=== PATIENT | male | born 1960 | race Caucasian/White ===

== ENCOUNTER 2019-03-01 10:56 | Outpatient (CLI) | payer OTHER ==
--- NOTE | 2019-03-01 15:11 | RAD ---
PA AND LATERAL VIEWS CHEST: Date: 03/01/19 HISTORY: Disability exam. FINDINGS: The heart size is normal. The lungs are expanded without lobar consolidation, pneumothoraces, or pleu ral effusions. There are degenerative changes in the spine. IMPRESSION: No acute process. POS: [facility]
--- NOTE | 2019-03-01 15:11 | RAD ---
RIGHT KNEE 2 VIEWS: HISTORY: Disability exam. Right knee pain. FINDINGS/IMPRESSION: There are postop changes. No fracture, subluxation, or bony destruction is seen. There are mild deg enerative changes. POS: [facility]
== END 2019-03-01 10:57 | disposition home or self-care (01) ==
LOC: BICRAD 10:56
PROVIDERS: ATTEND Internal Medicine
DX: Z02.71 Encounter for disability determination (principal); M17.11 Unilateral primary osteoarthritis, right knee; Z98.890 Other specified postprocedural states
CPT/HCPCS: 71046

== ENCOUNTER 2020-09-11 08:01 | Outpatient (CLI) | payer MEDICARE ==
[2020-09-11 08:36] LABS: Estimated GFR-MDRD - POC Greater than 90
== END 2020-09-11 08:02 | disposition home or self-care (01) ==
LOC: BICCT 08:01 → CT 08:02
PROVIDERS: ATTEND Internal Medicine Gastroenterology
DX: K63.9 Disease of intestine, unspecified (principal); K76.9 Liver disease, unspecified; K80.20 Calculus of gallbladder without cholecystitis without obstruction
CPT/HCPCS: 71260; 74177; 82565

== ENCOUNTER 2020-09-20 14:45 | Inpatient (IN) | payer MEDICARE ==
[2020-10-13 14:07] VITALS: BMI 33.5
[2020-10-18] MEDS ORDERED: cefOXitin Sodium/Dextrose 2 GM/50 ML BAG ONE (11:39)
[2020-10-18] MEDS ORDERED: Insulin Regular 300 UNITS/3 ML VIAL ONE (12:16)
[2020-10-18] MEDS ORDERED: Fentanyl 100 MCG/2 ML VIAL ONE ×3 (12:23→13:20)
[2020-10-18] MEDS ORDERED: Midazolam HCl 2 mg/2 ml Vial ONE ×2 (12:23→12:26)
[2020-10-18] MEDS ORDERED: Labetalol HCl 100 MG/20 ML VIAL ONE ×2 (12:26→13:32)
[2020-10-18] MEDS ORDERED: Ondansetron PF 4 MG/2 ML Vial ONE (13:32)
[2020-10-18] MEDS ORDERED: Lidocaine 1% PF 5 ML VIAL ONE (13:32)
[2020-10-18] MEDS ORDERED: Rocuronium Bromide 10 MG/ML (10ML VIAL) ONE (13:32)
[2020-10-18] MEDS ORDERED: Glycopyrrolate 0.2 MG/ML 5 ML SYRINGE ONE (13:32)
[2020-10-18] MEDS ORDERED: PROPOFOL 200 MG/20 ML VIAL ONE (13:32)
[2020-10-18] MEDS ORDERED: Bupivacaine HCl 0.5%/Epinephrine 1:200,000/PF 30 ml Vial ONE (13:32)
[2020-10-18] MEDS ORDERED: Metoclopramide HCl 10 MG/2 ML VIAL ONE (13:32)
[2020-10-18] MEDS ORDERED: SUGAMMADEX SODIUM 200 MG/2 ML VIAL ONE (14:56)
[2020-10-18] MEDS ORDERED: Ondansetron HCl/PF 4 MG/2 ML Vial IVP PRN (15:27)
[2020-10-18] MEDS ORDERED: Promethazine HCl 25 MG/ML VIAL IM PRN ×3 (15:27→17:43)
[2020-10-18] MEDS ORDERED: HYDROmorphone 2 MG/ML VIAL SLOW IVP PRN (15:27)
[2020-10-18] MEDS ORDERED: Promethazine HCl 25 MG/ML VIAL SLOW IVP PRN (15:27)
[2020-10-18] MEDS ORDERED: Labetalol HCl 100 MG/20 ML VIAL SLOW IVP SCH (15:45)
[2020-10-18] MEDS ORDERED: diphenhydrAMINE 50 MG/ML VIAL IM PRN (16:00)
[2020-10-18] MEDS ORDERED: Zolpidem Tartrate 5 MG TAB PO PRN (16:00)
[2020-10-18] MEDS ORDERED: Ondansetron PF 4 MG/2 ML Vial IVP PRN ×2 (16:00→17:43)
[2020-10-18] MEDS ORDERED: Naloxone HCl 0.4 mg/ml Vial IV PRN (16:00)
[2020-10-18] MEDS ORDERED: fentaNYL Citrate/PF 2,000 MCG in Sodium Chloride 0.9% 60 ML IV PRN (16:00)
[2020-10-18] MEDS ORDERED: diphenhydrAMINE 25 MG CAP PO PRN (16:00)
[2020-10-18] MEDS ORDERED: diphenhydrAMINE 50 MG/ML VIAL IVP PRN (16:00)
[2020-10-18] MEDS ORDERED: Communication Order-Pharmacy FS SCH (16:00)
[2020-10-18] MEDS ORDERED: hydrALAZINE 20 MG/ML VIAL ONE (16:01)
[2020-10-18] MEDS ORDERED: hydrALAZINE 20 MG/ML VIAL SLOW IVP PRN (17:43)
[2020-10-18] MEDS ORDERED: Albuterol Sulfate 2.5 mg/3 ml Neb NEB PRN (17:43)
[2020-10-18] MEDS: Sodium Chloride 0.9% 1,000 ML IV SCH (18:44)
[2020-10-18] MEDS: Mometasone 100 MCG/Formoterol 5 MCG 120 PUFF INHALER INH SCH (18:49)
[2020-10-18] MEDS: cefOXitin Sodium/Dextrose,Iso 2 GM in Premix Bag 1 BAG IVPB SCH (21:07)
[2020-10-18] MEDS: Famotidine/PF 20 mg/2ml Vial SLOW IVP SCH (21:08)
[2020-10-18] MEDS: Carvedilol 25 MG TAB PO SCH (21:08)
[2020-10-18] MEDS: Famotidine 20 MG TAB PO SCH (21:08)
[2020-10-18] MEDS: Insulin Regular 300 UNITS/3 ML VIAL SC PRN (21:45)
[2020-10-19] MEDS: cefOXitin Sodium/Dextrose,Iso 2 GM in Premix Bag 1 BAG IVPB SCH (03:22)
[2020-10-19] MEDS: Insulin Regular 300 UNITS/3 ML VIAL SC PRN ×3 (05:21→18:28)
[2020-10-19] MEDS: Sodium Chloride 0.9% 1,000 ML IV SCH ×2 (05:39→21:12)
[2020-10-19 05:46] LABS: #Lymphocytes 1.2 thou/uL (1.20-3.40); #Monocytes 0.7 thou/uL (0.11-0.59); #Neutrophils 10.7 thou/uL (1.40-6.50); %Basophils 0.2 % (0.0-1.0); %Eosinophils 0.1 % (0.0-10.0); %Lymphocytes 9.7 % (21.0-51.0); %Monocytes 5.8 % (0.0-10.0); %Neutrophils 84.2 % (42.0-75.0); Hemoglobin 14.8 g/dL (14.0-18.0); Mean Corpuscular HGB CONC 33.9 g/dL (32.0-36.0); Mean Corpuscular Hemoglobin 31.6 pg (27.0-31.0); Mean Corpuscular Volume 93.1 fL (78.0-98.0); Mean Platelet Volume 7.6 fL (7.4-10.4); Platelet Count 217 thou/uL (130-400); RBC Distribution Width 12.9 % (11.5-14.5); Red Blood Cell (RBC) Count 4.68 mill/uL (4.70-6.10); White Blood Cell (WBC) Count 12.7 thou/uL (4.8-10.8)
[2020-10-19 06:11] LABS: Anion Gap 14 mmol/L (10-20); BUN (Urea Nitrogen) 7 mg/dL (8.4-25.7); Calc. Creatinine Clearance 138 mL/min (70-130); Calcium 8.4 mg/dL (7.8-10.44); Carbon Dioxide 27 mmol/L (22-29); Chloride 97 mmol/L (98-107); Glucose 250 mg/dL (70-105); Potassium 4.2 mmol/L (3.5-5.1); Sodium 134 mmol/L (136-145)
[2020-10-19] MEDS: Mometasone 100 MCG/Formoterol 5 MCG 120 PUFF INHALER INH SCH ×2 (07:41→18:57)
[2020-10-19] MEDS: Famotidine/PF 20 mg/2ml Vial SLOW IVP SCH ×2 (09:38→21:12)
[2020-10-19] MEDS: Famotidine 20 MG TAB PO SCH ×2 (09:45→21:11)
[2020-10-19] MEDS: Lisinopril 5 MG TAB PO SCH (09:45)
[2020-10-19] MEDS: Carvedilol 25 MG TAB PO SCH ×2 (09:45→21:11)
[2020-10-19] MEDS: Enoxaparin Sodium 40 MG/0.4 ML SYRINGE SC SCH (10:30)
[2020-10-20] MEDS: Insulin Regular 300 UNITS/3 ML VIAL SC PRN ×3 (05:52→17:55)
[2020-10-20] MEDS: Mometasone 100 MCG/Formoterol 5 MCG 120 PUFF INHALER INH SCH ×2 (07:34→18:18)
[2020-10-20] MEDS: Enoxaparin Sodium 40 MG/0.4 ML SYRINGE SC SCH (08:57)
[2020-10-20] MEDS: Famotidine 20 MG TAB PO SCH ×2 (08:57→20:53)
[2020-10-20] MEDS: Lisinopril 5 MG TAB PO SCH (08:57)
[2020-10-20] MEDS: Carvedilol 25 MG TAB PO SCH ×2 (08:58→20:52)
[2020-10-20] MEDS: Sodium Chloride 0.9% 1,000 ML IV SCH (08:58)
[2020-10-20] MEDS: Famotidine/PF 20 mg/2ml Vial SLOW IVP SCH ×2 (08:58→20:52)
[2020-10-20] MEDS ORDERED: Sodium Chloride 0.9% 1,000 ML IV SCH (12:12)
[2020-10-21] MEDS: Insulin Regular 300 UNITS/3 ML VIAL SC PRN (06:35)
[2020-10-21] MEDS: Mometasone 100 MCG/Formoterol 5 MCG 120 PUFF INHALER INH SCH (07:55)
[2020-10-21 08:34] VITALS: TEMP 98.5
[2020-10-21 08:37] VITALS: BP 123/79
[2020-10-21] MEDS: Carvedilol 25 MG TAB PO SCH (09:02)
[2020-10-21] MEDS: Famotidine 20 MG TAB PO SCH (09:02)
[2020-10-21] MEDS: Lisinopril 5 MG TAB PO SCH (09:02)
[2020-10-21] MEDS: Enoxaparin Sodium 40 MG/0.4 ML SYRINGE SC SCH (09:02)
[2020-10-21] MEDS: Famotidine/PF 20 mg/2ml Vial SLOW IVP SCH (09:42)
== END 2020-10-21 10:24 | disposition home or self-care (01) | DRG 331 ==
LOC: SURG A 10-18 11:15 → SURG B 10-18 17:38
PROVIDERS: ADMIT Surgery; ATTEND Surgery
PROC: 0DTF0ZZ Resection of Right Large Intestine, Open Approach (ICD-10-PCS; principal; 2020-10-18)
PROC: 0DJD4ZZ Inspection of Lower Intestinal Tract, Percutaneous Endoscopic Approach (ICD-10-PCS; 2020-10-18)
DX: K63.89 Other specified diseases of intestine (principal); I11.0 Hypertensive heart disease with heart failure; I50.9 Heart failure, unspecified; E11.9 Type 2 diabetes mellitus without complications; F17.290 Nicotine dependence, other tobacco product, uncomplicated; I49.3 Ventricular premature depolarization; Z90.49 Acquired absence of other specified parts of digestive tract; Z98.890 Other specified postprocedural states; Z79.84 Long term (current) use of oral hypoglycemic drugs; Z79.899 Other long term (current) drug therapy
CPT/HCPCS: 36415; 36416; 80048; 85025; 88309; J0360; J0694; J1650; J1815; J2250; J2405; J2704; J2765; J3010; J3490; S0028

== ENCOUNTER 2020-09-29 14:32 | Outpatient (CLI) | payer MEDICARE ==
[2020-09-29 15:52] LABS: #Basophils 0.1 10x3/uL (0.0-0.2); #Eosinphils 0.4 10x3/uL (0.0-0.5); #Monocytes 0.7 10x3/uL (0.0-1.1); #Neutrophils 5.7 10x3/uL (1.5-8.4); %Basophils 0.6 % (0.0-2.0); %Eosinophils 4.2 % (0.0-6.0); %Lymphocytes 21.3 % (18.0-47.0); %Monocytes 7.9 % (0.0-10.0); %Neutrophils 65.7 % (40.0-75.0); Hemoglobin 15.9 g/dL (13.5-17.5); Mean Corpuscular HGB CONC 34.9 g/dL (32.0-36.0); Mean Corpuscular Volume 88.9 fl (81.2-95.1); Platelet Count 245 10x3/uL (150-450); RBC Distribution Width 13.1 % (11.5-14.5); Red Blood Cell (RBC) Count 5.13 10x6/uL (4.32-5.72); White Blood Cell (WBC) Count 8.7 10x3/uL (3.5-10.5)
[2020-09-29 16:17] LABS: Anion Gap 13 mmol/L (10-20); BUN (Urea Nitrogen) 12 mg/dL (8.4-25.7); Calc. Creatinine Clearance 0 mL/min (70-130); Calcium 9.9 mg/dL (7.8-10.44); Carbon Dioxide 32 mmol/L (22-29); Chloride 99 mmol/L (98-107); Glucose 365 mg/dL (70-105); Potassium 4.7 mmol/L (3.5-5.1); Sodium 139 mmol/L (136-145)
[2020-09-29 20:34] LABS: Hemoglobin A1c 9.1 % (4.0-6.0)
[2020-09-30 00:46] LABS: SARS-CoV-2 PCR by NAA Not Detected (NotDetected)
== END 2020-09-29 14:33 | disposition home or self-care (01) ==
LOC: LABBT 14:32
PROVIDERS: ATTEND Surgery
DX: Z01.818 Encounter for other preprocedural examination (principal); K63.9 Disease of intestine, unspecified; Z20.822 Contact with and (suspected) exposure to COVID-19
CPT/HCPCS: 80048; 83036; 85025; U0003; U0005; 87635

== ENCOUNTER 2020-10-13 10:36 | Outpatient (CLI) | payer MEDICARE ==
[2020-10-13 12:22] LABS: #Basophils 0.1 10x3/uL (0.0-0.2); #Eosinphils 0.3 10x3/uL (0.0-0.5); #Monocytes 0.6 10x3/uL (0.0-1.1); #Neutrophils 5.4 10x3/uL (1.5-8.4); %Basophils 0.6 % (0.0-2.0); %Eosinophils 3.7 % (0.0-6.0); %Lymphocytes 24.9 % (18.0-47.0); %Monocytes 6.6 % (0.0-10.0); %Neutrophils 63.8 % (40.0-75.0); Anion Gap 12 mmol/L (10-20); BUN (Urea Nitrogen) 14 mg/dL (8.4-25.7); Calc. Creatinine Clearance 0 mL/min (70-130); Calcium 9.7 mg/dL (7.8-10.44); Carbon Dioxide 31 mmol/L (22-29); Chloride 101 mmol/L (98-107); Glucose 301 mg/dL (70-105); Hemoglobin 15.1 g/dL (13.5-17.5); Mean Corpuscular Hemoglobin 31.3 pg (27.0-33.0); Mean Corpuscular Volume 89.4 fl (81.2-95.1); Mean Platelet Volume 10.3 fl (7.4-10.4); Platelet Count 225 10x3/uL (150-450); Potassium 4.4 mmol/L (3.5-5.1); RBC Distribution Width 13.2 % (11.5-14.5); Red Blood Cell (RBC) Count 4.82 10x6/uL (4.32-5.72); Sodium 140 mmol/L (136-145); White Blood Cell (WBC) Count 8.4 10x3/uL (3.5-10.5)
[2020-10-13 16:15] LABS: Hemoglobin A1c 9.1 % (4.0-6.0)
[2020-10-14 00:07] LABS: SARS-CoV-2 PCR by NAA Not Detected (NotDetected)
== END 2020-10-13 10:37 | disposition home or self-care (01) ==
LOC: LABBT 10:36
PROVIDERS: ATTEND Surgery
DX: Z01.818 Encounter for other preprocedural examination (principal); K63.9 Disease of intestine, unspecified; Z20.822 Contact with and (suspected) exposure to COVID-19
CPT/HCPCS: 80048; 83036; 85025; U0003; U0005